=== PATIENT | male | born 1980 | race Caucasian/White ===

== ENCOUNTER 2025-01-30 22:05 | Emergency (ER) | payer OTHER, SELFPAY ==
[2025-01-30 22:06] VITALS: BP 138/94
[2025-01-30] MEDS: PERCOCET 5/325 1 TABLET PO (23:36)
[2025-01-30] MEDS: MOTRIN 600 MG PO (23:36)
--- NOTE | 2025-01-30 23:56 | ED.GENMED ---
History of Present Illness
General
Chief Complaint: Musculo-Skeletal Complaint
Source: patient
Exam Limitations: none
Time Seen by Provider: 01/30/25 23:24
History of Present Illness
History of Present Illness:
44yoM with a history of factor V Leiden and GERD presenting for evaluation of a left Achilles tendon injury. Patient was playing soccer around 9 PM this evening. He was running and he felt a sudden onset of pain in his Achilles tendon. He states
he heard a pop and felt like he got shot in the ankle. He has been unable to bear any weight since that time. He has some paresthesias in the area of the Achilles tendon. No prior surgeries to the left ankle.
Past History
Past History
ED Past Medical History: GERD and Other (Leiden Factor V)
ED Past Surgical History: None
Social History
Tobacco: Non-smoker
Personal:
Living: with family
Employment: Employed
Family History
Family History: Negative Diabetes, Hypertension, Early CAD, Asthma or Cancer
Phy Exam
General Physical Exam
General Presentation: well appearing and no apparent distress
General age: appears stated age
General Skin: warm and dry
General Habitus: normal
General Mental: alert
ENT Exam
ENT Exam: normocephalic
Neurological Exam
Neurological Exam: alert
Egan Coma Scale
Eye Opening: Spontaneous
Verbal Response: Oriented
Motor Response: Obeys Commands
GCS Total Score: 15
Musculoskeletal Exam
Musculoskeletal Exam: other (Palpable defect in L Achilles tendon. +Lopez test. Able to wiggle toes and sensation intact. 2+ DP pulse.)
Skin Exam
Skin Exam: normal color and warm/dry
Psychiatric Exam
Psychiatric Exam: normal mood/affect
Course
Orders/Labs/Results
Orders:
Orders
01/30/25 23:29
Crutches-Treatment ONCE
Splints/Slings/Crut- Treatment ONCE
Location: Left
Type of Splint: Short Leg
Ibuprofen [Motrin] 600 mg PO NOW STA
Oxycodone/Acetaminophen [Percocet 5/325] 1 tablet PO NOW STA
Vital Signs
Initial and Last Documented VS:
Initial Vital Signs
Temp Pulse Resp BP Pulse Ox
97.7 F 89 16 138/94 98
01/30/25 22:06 01/30/25 22:06 01/30/25 22:06 01/30/25 22:06 01/30/25 22:06
Last Documented Vital Signs
Temp Pulse Resp BP Pulse Ox
97.7 F 67 16 117/79 98
01/30/25 22:06 01/31/25 00:04 01/31/25 00:04 01/31/25 00:04 01/30/25 22:06
MDM/Problems Addressed
Differential Diagnosis Includes:
44yoM presenting with an Achilles tendon injury. Playing soccer when he felt a pop followed by pain in his Achilles. Unable to bear weight. There is a palpable defect on exam and Lopez test is positive. Clinical presentation consistent with an
Achilles tendon rupture. LLE is neurovascularly intact.
Patient was placed in a short leg splint with foot held in plantar flexion by die cast technician. Neurovascular status unchanged after splint placement. Crutches provided and supportive care discussed. He was advised to follow-up with orthopedics for
further care.
*Critical Care Note
Total Time (30-74mins, 75-104mins- exclusive of procedures): Not Applicable
ED Attending Note
-
Portions of this chart may have been created with voice recognition software.� Occasional wrong word or��sound alike� substitutions may have occurred due to the inherent limitations of voice recognition software.
Discharge Plan
Departure
Patient Disposition: Home (Routine Discharge)
Date of Disposition: 01/30/25
Time of Disposition: 23:58
Patient with high blood pressure during this ER visit?: No
Discharge Problem:
Traumatic rupture of left Achilles tendon
Instructions: Achilles Tendon Rupture (DC)
Prescriptions:
No Action
Lansoprazole
30 mg PO DAILY
doxycycline hyclate 100 MG capsule
100 mg PO Q12 Qty: 19 0RF
Referrals:
Marysol Guerrero I., DO [Active] -
Modesto Hong, DO [Family Provider] -
Activity Restrictions/Additional Instructions:
Keep splint in place and do not get wet. Use crutches. Elevate your leg to help with swelling. Take Tylenol and ibuprofen for pain.
Please call tomorrow morning to schedule a follow-up with orthopedics for further treatment.
Interventions
Interventions:
*Risk Screen - Suicide Last Done: 01/30/25 22:06
*General Assessment Last Done: 01/30/25 22:06
*Neglect/Abuse Screening Last Done: 01/30/25 22:06
*ED- Fall Risk Assessment Last Done: 01/30/25 22:06
*ED COVID-19 Vaccine History Last Done: 01/30/25 22:06
*Nursing Disposition Last Done: 01/31/25 00:10
ED-Musculoskeletal Assessment Last Done: 01/30/25 23:02
Discharge Date and Time
Discharge Date/Time: 01/31/25 00:10
Print Language: UKRAINIAN
[2025-01-31 00:04] VITALS: BP 117/79
== END 2025-01-31 00:10 | disposition home or self-care (01) ==
LOC: EMR 22:05
PROVIDERS: EMERGENCY PHYSICIAN Student in an Organized Health Care Education/Training Program; FAMILY PHYSICIAN Family Medicine
DX: S86.012A Strain of left Achilles tendon, initial encounter (principal); X58.XXXA Exposure to other specified factors, initial encounter; Y93.66 Activity, soccer; D68.51 Activated protein C resistance
CPT/HCPCS: 29125; 99283